=== PATIENT | male | born 1995 | race Caucasian/White ===

== ENCOUNTER → 2019-06-25 | Outpatient (CLI) | payer OTHER ==
[~2019-06-25] MED LIST: METHACHOLINE KIT (J7674) INH ONE
--- NOTE | 2019-06-25 08:35 | PFTRPT ---
Height: 70.00 Inches Weight: 213.00 Lbs BSA: 2.14 Diagnosis: R06.02 DATE OF STUDY: 06/25/2019 ORDERED BY: Dr. Hare INTERPRETATION: Study of excellent technical quality. Under protocol, methacholine was administered. At a dose of 10 mg or 63.875 CDUs, a 28% decline in the FEV1 was noted. PC of 4.14 is significant. Flow rates did return to baseline post bronchodilator administration. IMPRESSION: Positive methacholine challenge study. MTDD
== END ==
LOC: EDSEX 07:27 → M CARPUL 07:27
PROVIDERS: ATTEND Internal Medicine Pulmonary Disease
DX: R06.02 Shortness of breath (principal)
CPT/HCPCS: 94070; J7674

== ENCOUNTER → 2019-09-25 | Outpatient (CLI) | payer OTHER ==
[~2019-09-25] MED LIST changes: +ADVA230A INH; +ALBU8.5H IH; -METHACHOLINE KIT (J7674) INH ONE
--- NOTE | 2019-09-25 15:52 | REP ---
INDICATION: Paresthesias PROCEDURE: MRI of the brain without contrast. Axial T1-T2, FLAIR, diffusion weighted images obtained. Sagittal T1-weighted images obtained. COMPARISON STUDIES: No prior similar studies. FINDINGS: No evidence of restricted diffusion to suggest acute infarction. No gradient-echo susceptibility to suggest hemorrhage. The ventricles and extra-axial CSF spaces are within normal limits. No mass effect or midline shift. No abnormal fluid collections. IMPRESSION: No acute findings. Electronically Signed by Tony Colunga MD 09/25/2019 03:43 P
== END ==
LOC: M RAD 14:40
PROVIDERS: ATTEND Physician Assistant
DX: R20.2 Paresthesia of skin (principal)

== ENCOUNTER 2019-11-21 15:00 | Outpatient (RCR) | payer OTHER | END 2019-12-10 | LOC: M ST 15:00 | PROVIDERS: ATTEND Physician Assistant | DX: Z51.89 Encounter for other specified aftercare (principal); R49.0 Dysphonia ==

== ENCOUNTER 2020-01-27 12:50 | Outpatient (RCR) | payer OTHER | END 2020-02-09 | LOC: M ST 12:50 | PROVIDERS: ATTEND Physician Assistant | DX: R49.0 Dysphonia (principal) ==